=== PATIENT | female | born 1975 | race African-American/Black ===

== ENCOUNTER 2017-02-26 19:26 | Emergency (ER) | payer OTHER ==
[~2017-02-26] VITALS: Ht 172.7 cm; Wt 74.8 kg
[2017-02-26 19:32] VITALS: BP 111/76
[2017-02-26] MEDS ORDERED: IBUPROFEN 600 MG TAB PO ONE (22:45)
== END 2017-02-26 23:42 | disposition home or self-care (01) ==
LOC: ER 19:36
DX: S93.402A Sprain of unspecified ligament of left ankle, initial encounter (principal); W19.XXXA Unspecified fall, initial encounter; Y93.89 Activity, other specified; Y99.8 Other external cause status; Y92.89 Other specified places as the place of occurrence of the external cause; Z88.6 Allergy status to analgesic agent
CPT/HCPCS: 29515; 73610

== ENCOUNTER 2018-02-15 16:03 | Emergency (ER) | payer MEDICAID, OTHER ==
[~2018-02-15] VITALS: Ht 172.7 cm; Wt 78.5 kg
[2018-02-15 16:24] VITALS: BP 129/55
[2018-02-15] MEDS ORDERED: ONDANSETRON ODT 4 MG TAB PO ONE (17:30)
[2018-02-15] MEDS ORDERED: KETOROLAC TROMETH 60MG/2ML VIAL IM ONE (17:30)
== END 2018-02-15 18:06 | disposition home or self-care (01) ==
LOC: ER 16:09
DX: G43.909 Migraine, unspecified, not intractable, without status migrainosus (principal); Z88.8 Allergy status to other drugs, medicaments and biological substances
CPT/HCPCS: 96372; 99283; J1885; Q0162

== ENCOUNTER 2018-04-12 16:36 | Emergency (ER) | payer MEDICAID ==
[~2018-04-12] VITALS: Ht 172.7 cm; Wt 76.2 kg
[2018-04-12 18:35] VITALS: BP 105/71
== END 2018-04-12 19:49 | disposition home or self-care (01) ==
LOC: ER 16:38
DX: G24.3 Spasmodic torticollis (principal); M62.838 Other muscle spasm; Z88.8 Allergy status to other drugs, medicaments and biological substances